=== PATIENT | female | born 1950 | race Caucasian/White ===

== ENCOUNTER → 2023-08-21 09:58 | Outpatient (REF) | payer OTHER, SELFPAY | LOC: HWRAD 09:58 | PROVIDERS: ATTENDING PHYSICIAN Physician Assistant Medical | DX: M81.0 Age-related osteoporosis without current pathological fracture (principal) | CPT/HCPCS: 77080 ==

== ENCOUNTER → 2023-10-08 09:02 | Outpatient (REF) | payer OTHER, SELFPAY | LOC: RAD 09:02 | PROVIDERS: ATTENDING PHYSICIAN Physician Assistant Medical | DX: Z13.6 Encounter for screening for cardiovascular disorders (principal) | CPT/HCPCS: 76770 ==

== ENCOUNTER → 2023-10-28 13:40 | Outpatient (REF) | payer OTHER, SELFPAY | LOC: WDC 13:40 | PROVIDERS: ATTENDING PHYSICIAN Physician Assistant Medical | DX: Z12.31 Encounter for screening mammogram for malignant neoplasm of breast (principal) | CPT/HCPCS: 77063; 77067 ==

== ENCOUNTER → 2024-01-06 14:19 | Outpatient (REF) | payer OTHER, SELFPAY ==
[2024-01-06 15:47] LABS: ALT (SGPT) 26 U/L (0-35); AST (SGOT) 33 U/L (14-36); Albumin 4.4 g/dl (3.5-5.0); Alkaline Phosphatase 85 U/L (38-126); Blood Urea Nitrogen 22 mg/dl (7-17); Calcium 9.7 mg/dl (8.4-10.2); Carbon Dioxide 24 mmol/L (22-30); Chloride 106 mmol/L (98-107); Glucose 91 mg/dl (70-99); Potassium 4.8 mmol/L (3.5-5.1); Sodium 140 mmol/L (135-145); Total Bilirubin 0.7 mg/dl (0.2-1.3); Total Protein 7.1 g/dl (6.3-8.2); eGFR > 60.00
[2024-01-06 15:53] LABS: IgA 186 mg/dl (70-400)
[2024-01-06 16:02] LABS: Vitamin D, 25-OH*** 32.9 ng/mL (30-80)
[2024-01-06 16:15] LABS: Cortisol, Random 7.9 ug/dl
[2024-01-08 15:27] LABS: Endomysial IgA Antibody Titer <1:10 (<1:10)
[2024-01-08 15:48] LABS: tTG IgA Antibody 5.9 EU/ml (0-19); tTG IgG Antibody 5.7 EU/ml (0-19)
== END ==
LOC: REG 14:19
PROVIDERS: ATTENDING PHYSICIAN Internal Medicine Rheumatology; FAMILY PHYSICIAN Internal Medicine
DX: D47.2 Monoclonal gammopathy (principal); E21.5 Disorder of parathyroid gland, unspecified; E24.9 Cushing's syndrome, unspecified; E55.9 Vitamin D deficiency, unspecified; K90.41 Non-celiac gluten sensitivity; M81.0 Age-related osteoporosis without current pathological fracture
CPT/HCPCS: 36415; 80053; 82306; 82533; 82784; 83516; 83521; 83970; 84155; 84165; 86231; 86334

== ENCOUNTER → 2024-11-11 16:14 | Outpatient (REF) | payer OTHER, SELFPAY | LOC: WDC 16:14 | PROVIDERS: ATTENDING PHYSICIAN Family Medicine | DX: Z12.31 Encounter for screening mammogram for malignant neoplasm of breast (principal) | CPT/HCPCS: 77063; 77067 ==